=== PATIENT | female | born 1955 | race African-American/Black ===

== ENCOUNTER 2017-06-09 11:10 | Outpatient (CLI) ==
[2015-02-24 20:44] VITALS: BMI 33.2
--- NOTE | 2017-06-09 11:48 | DI ---
EXAM: Six views of the cervical spine. History: Neck pain. Comparison: Cervical spine radiograph 02/26/2015 Findings: No acute fracture or subluxation. No prevertebral soft tissue swelling. Disc space heig hts are preserved. Oblique images demonstrate no significant bony neural foraminal narrowing. Pred ental space is not widened. Impression: Unremarkable exam.
--- NOTE | 2017-06-09 11:50 | DI ---
EXAM: Lumbar spine radiographs. HISTORY: Back pain. COMPARISON: None available. TECHNIQUE: 5 views of the lumbar spine. FINDINGS: Mild right convex curvature may be present in the lower thoracic spine. Appears to be le ft convex curvature centered near L4-5. Partial sacralization of L5 on the left noted. There is ap proximately 0.5 cm anterolisthesis of L4 on L5. Vertebral body heights are normal. There is modera te loss of disc height at L3-4 and L4-5. Mild endplate osteophyte formation noted. Multilevel face t arthropathy appears greater in the lower lumbar spine. No fracture identified. Sacral arcuate li fausto intact. Soft tissues are unremarkable. IMPRESSION: 1. Multilevel degenerative changes, greater in the lower lumbar spine. 2. Partial sacralization of L5.
== END 2017-06-09 11:11 | disposition home or self-care (01) ==
LOC: RAD 11:10
PROVIDERS: ATTEND Internal Medicine
DX: M54.2 Cervicalgia (principal); M54.9 Dorsalgia, unspecified

== ENCOUNTER 2019-03-02 08:11 | Outpatient (CLI) ==
[2015-02-24 20:44] VITALS: BMI 33.2
--- NOTE | 2019-03-02 09:41 | US ---
EXAM: Renal ultrasound HISTORY: Chronic kidney disease COMPARISON: None TECHNIQUE: Renal ultrasound was performed FINDINGS: Right kidney measures 3.7 x 3.8 x 8.8 cm. Left kidney measures 3.4 x 4.5 x 9.0 cm. Renal cortical echogenicity is normal. Minimal right pelviectasis versus extrarenal pelvis. No left hydr onephrosis. No renal calculus identified large enough to cause acoustic shadowing. 0.5 cm cyst righ t mid kidney. Bladder only mildly distended and poorly evaluated, grossly unremarkable. IMPRESSION: 1. Minimal right pelviectasis versus extrarenal pelvis. 2. Sub centimeter right renal cyst.
== END 2019-03-02 08:12 | disposition home or self-care (01) ==
LOC: RAD 08:11
PROVIDERS: ATTEND Internal Medicine
DX: N18.9 Chronic kidney disease, unspecified (principal); R31.9 Hematuria, unspecified
CPT/HCPCS: 81050; 82575; 84156